=== PATIENT | female | born 1990 | race Caucasian/White ===

== ENCOUNTER 2021-05-23 19:46 | Emergency (ER) | payer SELFPAY ==
[~2021-05-23] VITALS: Ht 149.9 cm; Wt 42.6 kg
[2021-05-23 20:27] VITALS: BP 113/75
--- NOTE | 2021-05-23 20:30 | NUR ---
TO LOBBY A/W BED AMBULATORY
--- NOTE | 2021-05-23 20:40 | NUR ---
PT CALLED TO BED, PT HAS NO RESPONSE. ERMD MADE AWARE
--- NOTE | 2021-05-23 20:45 | NUR ---
PT CALLED TO BED, PT HAS NO RESPONSE. ERMD MADE AWARE
[2021-05-23 20:50] VITALS: BP 113/75
--- NOTE | 2021-05-23 20:50 | NUR ---
LEFT WITHOUT BEING SEEN BY ERMD
== END 2021-05-23 20:50 | disposition left against medical advice (07) ==
LOC: MED 19:46
DX: R10.2 Pelvic and perineal pain (principal); Z53.21 Procedure and treatment not carried out due to patient leaving prior to being seen by health care provider

== ENCOUNTER 2021-05-27 09:58 | Emergency (ER) | payer SELFPAY ==
[~2021-05-27] VITALS: Ht 149.9 cm; Wt 43.1 kg
[2021-05-27 10:05] VITALS: BP 140/75
--- NOTE | 2021-05-27 10:11 | NUR ---
PT TAKEN TO BED 11.
--- NOTE | 2021-05-27 10:15 | NUR ---
30 y/o F BIB self from home after PCP referral for ER evalutation for abscess x 1 week. Patient A&Ox4, ambulatory, states abscess to R upper inner thigh x 1 week. Reports pain 10/10, aching/intermittent, localized pain. Patient states she has been taking prescribed Ampicillin x 1 week and her PCP advised that the ABX is not working, may need drainage. Patient reports worsening pain with sitting. States compliant with ampicillin and Ibuprofen 500mg @ 0500 with minor relief. Denies nausea, vomiting, SOB, drainage, bleeding to abscess site, fever, chills. Pt placed into a gown. VSS; respirations even/unlabored. Bed locked in lowest position, side rails x 1. PMH/Meds/Sx: Denies NKA
--- NOTE | 2021-05-27 11:05 | NUR ---
Patient resting in position of comfort in semi-fowlers position. No distress noted. All needs met at this time.
--- NOTE | 2021-05-27 12:17 | NUR ---
Dr. Green is evaluating patient at bedside.
--- NOTE | 2021-05-27 12:22 | NUR ---
Dr. Green is evaluating patient with female RN concrete finisher apprentice.
[2021-05-27 12:23] VITALS: BP 98/58
[2021-05-27] MEDS ORDERED: LIDOCAINE MPF 1% 10 MG/ML VIAL INJ ONE (12:25)
--- NOTE | 2021-05-27 12:44 | NUR ---
Dr. Green is at bedside with female RN powderman for I&D procedure.
[2021-05-27] MEDS ORDERED: IBUP-2213 PO ×2 (12:59→13:00)
[2021-05-27] MEDS ORDERED: ACET-8386 PO (13:00)
--- NOTE | 2021-05-27 13:11 | NUR ---
Patient discharged with v/s stable. Written and verbal after care instructions given and explained. Patient alert, oriented and verbalized understanding of instructions. Ambulatory with steady gait. All questions addressed prior to discharge. ID band removed. Patient advised to follow up with PMD. Rx of Hydrocodone-Acetaminophen, Ibuprofen given. Patient educated on indication of medication including possible reaction and side effects. Opportunity to ask questions provided and answered.
== END 2021-05-27 13:11 | disposition home or self-care (01) ==
LOC: MED 09:58
DX: N76.4 Abscess of vulva (principal)
CPT/HCPCS: 56405; 99284; J2001